=== PATIENT | male | born 1950 | race Caucasian/White ===

== ENCOUNTER 2016-05-16 22:44 | Inpatient (IN) | payer OTHER ==
[~2016-05-16] VITALS: Ht 170.2 cm; Wt 71.6 kg
--- NOTE | ~2016-05-16 | CON ---
PATIENT'S NAME: LESLIE WHITTINGTON [facility] AGE: 65 Y [address] ROOM: [place] [address] LOCATION: [facility] ADMIT DATE: 05/17/2016 Consultation DISCHARGE DATE: FAMILY PHYSICIAN: PHYSICIAN, UNKNOWN ATTENDING PHYSICIAN: Praveen Oropeza DATE OF CONSULTATION: 05/17/2016 REFERRING PHYSICIAN: Nia Carr MD CHIEF COMPLAINT: Request for medical management in the setting of chain saw injury to the left arm. HISTORY OF PRESENTING ILLNESS: This 65-year-old white male, previously healthy, was admitted to [facility] this morning after repair of a laceration/avulsion injury to the left arm, which occurred yesterday. Briefly, the patient is from [place] and had been visiting the [employer] near [place]. He was helping to support a telephone pole, which was being cut at chest level by another individual when the chain saw slipped striking him in the left arm. He fell to the ground and had pain immediately. There was significant amount of bleeding, but a tourniquet was fashioned on the scene. He was taken to the [facility] and subsequently brought here by air ambulance. He was taken directly to the operating room, where primary repair was carried out by Dr. Oropeza. On his arrival to the floor, he reports feeling "okay." He expresses some emotional distress over the incident, but his pain is well-controlled. He denies headache pain. He denies dizziness or lightheadedness. No chest pain or significant shortness of breath. No abdominal pain. His appetite has been good although he has not eaten since yesterday. No difficulties with chewing or swallowing. He stools normally and voids normally. He denies numbness, tingling, or weakness in his extremities or any associated physical or constitutional complaints. ALLERGIES: NO KNOWN DRUG ALLERGIES. ILLNESSES: 1. BPH, status post TURP. 2. Osteoarthritis, generalized. CURRENT MEDICATIONS: Multivitamin daily. PATIENT'S NAME: LESLIE WHITTINGTON [facility] AGE: 65 Y [address] ROOM: [place] [address] LOCATION: [facility] ADMIT DATE: 05/17/2016 Consultation DISCHARGE DATE: FAMILY PHYSICIAN: PHYSICIAN, UNKNOWN ATTENDING PHYSICIAN: Praveen Oropeza FAMILY HISTORY: Significant for multiple myeloma in his brother. Mother has dementia and hysteria. She lives in a senior living in [place]. SOCIAL HISTORY: He is and lives here in [place]. He is a lifelong nonsmoker and rarely drinks alcohol. REVIEW OF SYSTEMS: As per HPI. All other organ systems are reviewed and are negative. OBJECTIVE: VITAL SIGNS: Temperature 97.5, pulse 84, respirations 24, and blood pressure 171/81. GENERAL: He is anxious, but cooperative, lying in the bed, in no acute distress. SKIN: Supple, pink, warm, and dry. There are no obvious rashes. He has got a large bulky dressing over the left arm and a wound VAC in place. HEENT: Otherwise, normocephalic. Sclerae nonicteric. Pupils equal, round, and reactive to light and accommodation. Extraocular movements appear intact. Nasal turbinates normal in appearance. Oropharynx clear. Mucous members pink and moist. NECK: Supple. No masses. No thyromegaly. No JVD. CHEST: Chest wall is symmetrical. HEART: Regular without murmurs. LUNGS: Clear bilaterally. No wheezes or crackles are heard. ABDOMEN: Soft, nontender. Bowel sounds present. No masses or hepatosplenomegaly. AND RECTAL: Exam not done. EXTREMITIES: Display no significant clubbing, cyanosis, or edema. NEUROLOGICAL: No focal deficits. I am unable to assess the left arm, but there is an apparent sensory and motor deficit at the left ulnar nerve. LABORATORY AND X-RAY DATA: None available. ASSESSMENT AND PLAN: 1. Hypertension, essential, I suspect this is probably situational. He has no documented history of hypertension. We will monitor and provide supportive cares. Work toward pain control and mobilize him as he is physically able. If the trend remains high, we will consider initiating antihypertensive regimen. 2. Benign prostatic hypertrophy, status post transurethral resection of the prostate. Clinically, stable and relatively asymptomatic now. 3. Osteoarthritis, generalized. Symptomatic treatment, but avoid PATIENT'S NAME: LESLIE WHITTINGTON [facility] AGE: 65 Y [address] ROOM: [address] [address] LOCATION: [facility] ADMIT DATE: 05/17/2016 Consultation DISCHARGE DATE: FAMILY PHYSICIAN: PHYSICIAN, UNKNOWN ATTENDING PHYSICIAN: Praveen Oropeza nonsteroidal antiinflammatory drugs. 4. Chain saw injury with laceration/avulsion to the left arm and associated ulnar injury, status post primary repair. Continue with local wound care and the wound VAC. We will monitor through the weekend. Plan to repeat a CBC tomorrow. The plan as of now is to change the wound VAC and reinspect the wound on Friday at which point he may likely go home. 5. Deep venous thrombosis prophylaxis. We will utilize pneumatic compression devices and mobilize him as he is physically able. NIA J MD DANNIELLE CARR/rosey /[id number] d: 05/17/16734 t: 05/17/16803, CONSULTATION REPORT
--- NOTE | ~2016-05-16 | DS ---
PATIENT'S NAME: LESLIE WHITTINGTON [facility] AGE: 65 Y [address] ROOM: [place] [address] LOCATION: [facility] ADMIT DATE: 05/17/2016 Discharge Summary DISCHARGE DATE: 05/20/2016 FAMILY PHYSICIAN: Physician, Unknown ATTENDING PHYSICIAN: Gregory Oropeza HOSPITAL COURSE: Mr. Whittington has chainsaw injury to his left arm, complicated wound of the arm with significant muscle damage of the flexor muscles at the base. Complete laceration of the ulnar nerve. The wound was debrided. Ulnar nerve was transposed, trimmed healthy edges, Fascicles were aligned and an epineural repair. At 60 degrees of flexion and slight volar flexion of the wrist, there was absolutely no tension on the ulnar nerve. Fascia was closed. Wound was placed over the large open wound. Minimal pain. He was able to fully move fingers. Ulnar nerve deficit as expected. Cover with antibiotics. Ready for discharge to home on the . Wound is intact. No necrosis. We will continue with a wound VAC change every Friday, Friday, and Friday. Expect not need a skin graft. Tylenol or [place] for pain. Work on range of motion of fingers. Wear the brace. Instructed not to fully extend the elbow to protect the nerve repair. Schedule to follow up with Dr. Oropeza on 06/03/2016 at 9:00 a.m. GREGORY OROPEZA MD DPM/rosey /[id number] d: 05/20/16924 t: 05/21/161809, DISCHARGE SUMMARY
--- NOTE | ~2016-05-16 | HP ---
PATIENT'S NAME: LESLIE WHITTINGTON [facility] AGE: 65 Y [address] ROOM: [place] [address] LOCATION: [facility] ADMIT DATE: 05/17/2016 History & Physical DISCHARGE DATE: FAMILY PHYSICIAN: PHYSICIAN, UNKNOWN ATTENDING PHYSICIAN: Praveen Oropeza DATE OF SERVICE: 05/16/2016 EMERGENCY ROOM EVALUATION TIME: 11:00 p.m. HISTORY OF PRESENT ILLNESS: Mr. Whittington is a 65-year-old left-handed white male. 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 He was cutting down a telephone pole, cut his left arm with a chainsaw. He was evaluated at the [facility]. Tetanus was updated. The wound was explored in the emergency room under Arianne block and tourniquet. Reported to have laceration of the flexor carpi ulnaris. No other injuries found. PAST MEDICAL HISTORY: He is healthy. Does not smoke. Drinks alcohol but none today. No drug abuse. ALLERGIES: NONE. MEDICATIONS: None. REVIEW OF SYSTEMS: As above. PERSONAL AND SOCIAL HISTORY: He is a director account management. Lives and works in [place]. PHYSICAL EXAMINATION: GENERAL: A white male, no distress. HEENT: Hears and sees. NECK: Nontender. HEART: Pulse rate is regular. LUNGS: Able to take in a deep breath. ABDOMEN: Soft, nontender. EXTREMITIES: Left arm is wrapped in a bulky dressing with some bleeding PATIENT'S NAME: LESLIE WHITTINGTON [facility] AGE: 65 Y [address] ROOM: [place] [address] LOCATION: [facility] ADMIT DATE: 05/17/2016 History & Physical DISCHARGE DATE: FAMILY PHYSICIAN: PHYSICIAN, UNKNOWN ATTENDING PHYSICIAN: Praveen Oropeza through. The left hand has good capillary refill. The ulnar nerve distribution is numb. Intrinsics are weak. Thenar muscles and extensors have full strength. ASSESSMENT AND PLAN: A chainsaw injury to the left arm. He has received tetanus, to the operating room to explore. Reported to have tendon lacerations, which were repaired. On examination, he appears to have an ulnar nerve deficit, likely to have an injury to the ulnar nerve, that may require repair. Risks, benefits, and alternatives have all been discussed in detail. PRAVEEN OROPEZA MD DPM/rosey /[id number] D: [id number] T: [id number] HISTORY & PHYSICAL
--- NOTE | ~2016-05-16 | ER ---
PATIENT'S NAME: LESLIE WHITTINGTON [facility] AGE: 65 Y [address] ROOM: [place] [address] LOCATION: [facility] ADMIT DATE: 05/17/2016 ER/Outpatient Report DISCHARGE DATE: FAMILY PHYSICIAN: PHYSICIAN, UNKNOWN ATTENDING PHYSICIAN: Armando Oropeza Admission date and time documented in the medical record. I saw the patient at 2250 hours. CHIEF COMPLAINT: Chainsaw laceration, left forearm. 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 He and another individual were trying to cut down a telephone pole with a chainsaw. The patient was trying to hold the pole back, so would not snap on him, and apparently, the chainsaw run by the other individual, jumped, cut him in the left forearm. Deep major laceration. The patient was initially seen in [place] and transferred by air ambulance to [facility] for further evaluation and treatment. I did speak with the physician at [place] and did have him also talk with Dr. Oropeza, orthopedic surgeon. The patient's vital signs remained stable through the flight. He was soaking through his bandages just prior to landing. He did get a tetanus update, did get fluids, did get pain medications. Did not receive any antibiotics. No recent colds, coughs, flus, fever, chills, or sweats. No headache, eyes, ears, nose, throat, neck, or spine pain. No chest pain, shortness of breath. No abdominal pain, nausea, vomiting, diarrhea, urinary frequency, urgency, or dysuria. No other joint or muscle swelling, redness, or pain other than the left forearm. No skin eruptions or rash. No history of endocrine problems, neuro changes, or psych issues. HOME MEDICATIONS: None. ALLERGIES: NONE. SOCIAL HISTORY: Nonsmoker. Occasional intake of alcohol. SIGNIFICANT PAST MEDICAL HISTORY: Negative. OPERATIONS: None. PATIENT'S NAME: LESLIE WHITTINGTON [facility] AGE: 65 Y [address] ROOM: [place] [address] LOCATION: [facility] ADMIT DATE: 05/17/2016 ER/Outpatient Report DISCHARGE DATE: FAMILY PHYSICIAN: PHYSICIAN, UNKNOWN ATTENDING PHYSICIAN: Armando Oropeza REVIEW OF SYSTEMS: All systems reviewed by me are negative with the exception of those discussed in the history of present illness. PHYSICAL EXAMINATION: VITAL SIGNS: Reviewed by me. They are on the nurse's document. HEAD: Normocephalic. No abrasion, contusion, laceration, swelling of the scalp or face. EYES: Extraocular muscles intact. PERRL. EARS: Clear TMs bilaterally. NOSE: Clear. THROAT: Clear. Mucous membranes moist. Teeth and jaw intact. NECK: No nuchal rigidity. No thyromegaly or cervical adenopathy. SPINE: Negative. LUNGS: Clear. Good air flow. No rales, rhonchi, or wheezes. HEART: Regular. Pulses are palpable. No chest wall or ribcage pain to palpation. ABDOMEN: Flat, soft, nondistended, nontender. Good bowel tones. No organomegaly or abnormal mass palpable. EXTREMITIES: No peripheral edema, cyanosis, or deformity. The patient has good capillary refill of his left hand. He has some numbness on ulnar aspect of the hand. I did not address the wound at this time. We will wait to have Dr. Oropeza, orthopedic surgeon, and wrap the hand and look at the wound. Dr. Oropeza may do this back in surgery. NEUROVASCULAR: Intact other than he may have some ulnar damage to the left arm. SKIN: Clear other than the left forearm injury. EMERGENCY DEPARTMENT COURSE: Did continue the patient on IV normal saline and fluids. Did give him antibiotics here. The patient will be taken back to surgery, operation to cleanse, debride the wound per Dr. Praveen Oropeza, orthopedic surgeon. IMPRESSION: Extensive chainsaw laceration, left forearm with possible ulnar nerve damage. PLAN: The patient will continue to receive IV fluids, IV pain medications, IV antibiotics here in the emergency department. Awaiting for the patient to be taken back to surgery for irrigation and debridement and possible closure of the left forearm laceration per Dr. Praveen Oropeza. PATIENT'S NAME: LESLIE WHITTINGTON [facility] AGE: 65 Y [address] ROOM: [place] [address] LOCATION: [facility] ADMIT DATE: 05/17/2016 ER/Outpatient Report DISCHARGE DATE: FAMILY PHYSICIAN: PHYSICIANVENKATESH ATTENDING PHYSICIAN: Armando Oropeza MD CLAYTON GRANADOS/modl /[id number] d: 05/17/16 0120 t: 05/17/16 1825, OUTPATIENT REPORT
--- NOTE | ~2016-05-16 | OR ---
PATIENT'S NAME: LESLIE WHITTINGTON [facility] AGE: 65 Y [address] ROOM: [address] [address] LOCATION: [facility] ADMIT DATE: 05/17/2016 OR/Procedure Report DISCHARGE DATE: FAMILY PHYSICIAN: PHYSICIAN, UNKNOWN ATTENDING PHYSICIAN: Praveen Oropeza SURGEON: Praveen Oropeza MD SENIOR SOFTWARE ENGINEERING MANAGER: DATE OF PROCEDURE: 05/17/2016 DIAGNOSES: 1. Chainsaw injury to the left forearm. 2. Ulnar nerve deficit of motor and sensory function on preoperative examination. 3. Open wound disrupting the origin of the left arm flexor muscles. PROCEDURES PERFORMED: 1. Irrigation and debridement of chainsaw injury to the left forearm. 2. Exploration and neurolysis of ulnar nerve. 3. Submuscular transposition of the left ulnar nerve. 4. Microscopic repair of the ulnar nerve matching up fascicles. 5. Repair of volar flexor muscle fascia. 6. Application of a wound VAC. 7. Splinting left upper extremity with the elbow flexed 60 degrees and 15 degrees volar flexion in neutral rotation. ANESTHESIA: General. INDICATION: Mr. Whittington is almost 8 hours status post open chainsaw injury to the left upper extremity. On examination preop, has absence of ulnar nerve sensation and also weakness of the intrinsic muscles consistent with an ulnar nerve laceration. To the operating room for irrigation and debridement of the open chainsaw wound, probable primary repair of the ulnar nerve. May require special positioning and possibly even ulnar nerve transposition. Repair of tendons and fascia is required. May require a wound VAC followed by skin grafting. Risks, benefits, and alternatives have all been discussed. Understands with an ulnar nerve repair, even with a primary repair, will be kaley to have return of protective sensation and likely end up for a significant return of motor function of the intrinsics, likely then end up with some clawing of the fingers on the ulnar side of the hand, hopefully will prevent a painful neuroma. Risks benefits, and alternatives were all carefully discussed. Appeared on examination to have good capillary refill and a palpable radial pulse. DESCRIPTION OF PROCEDURE: Mr. Whittington was taken to the operating room, 2 grams of Kefzol was given intravenously for prophylaxis. His tetanus had been PATIENT'S NAME: LESLIE WHITTINGTON [facility] AGE: 65 Y [address] ROOM: [id number] [place], [place] [address] LOCATION: [facility] ADMIT DATE: 05/17/2016 OR/Procedure Report DISCHARGE DATE: FAMILY PHYSICIAN: PHYSICIAN, UNKNOWN ATTENDING PHYSICIAN: Praveen Oropeza updated back in the [facility]. General anesthetic was administered via endotracheal tube. Tourniquet high about the left arm, in fact when the dressing was removed, there was so much bleeding that the tourniquet was immediately inflated. The arm was prepped with Betadine scrubbing followed by Betadine painting and draped sterilely. The wound in the volar aspect of the proximal forearm spanned approximately 10 cm x 10 cm. The distal ulnar nerve was found. It was completely divided and shredded. Proximal end was also shredded. Cut back to good healthy tissue. There was a vein which allowed the fascicles to be matched up. There was tension too great to allow primary repair. The ulnar nerve was explored proximally, and ulnar nerve submuscular transposition was performed. This allowed a tension-free repair of the nerve using 6-0 nylon and loupe magnification. The nerve was repaired in epineurium with the fascicles matched up. The wound was washed, and carefully and meticulously debrided and irrigated with 3 L with the pulse lavage prior to the repair. The tourniquet had been deflated after 1 hour, and meticulous attention to hemostasis. The flexor muscles with the flexor carpi ulnaris, flexor carpi radialis, their bases were completely chewed up with the volar fascia disrupted. Deep muscles were largely intact. With the elbow flexed 60 degrees and with approximately 10 to 15 degrees of volar flexion of the wrist, there was absolutely no tension on the ulnar nerve repair. Closing the fascia over the flexor muscles covered the repair with viable flexor muscles. The tendon was repaired over the submuscular transposition with 0 Vicryl. Proximal incision was closed with 2-0 nylon simple sutures. The remaining wound in the subcutaneous tissue to the fascia, it bands approximately 3 cm x 10 cm. A wound VAC was placed over the open wound. A well-padded splint with 60 degrees of elbow flexion and 15 degrees of wrist volar flexion was applied. Procedure was done without complication. Estimated blood loss from the procedure was minimal. Tourniquet time was 60 minutes. To the recovery room in stable condition. PRAVEEN OROPEZA MD DPM/rosey /[id number] d: 05/17/16 0522 t: 05/21/16 1805, OPERATIVE SUMMARY
[2016-05-16] MEDS ORDERED: THERA-VITE W/ B1 TAB PO (23:54)
[2016-05-18 04:36] LABS: BASOPHIL % 0.3 %; EOSINOPHIL # 0.1 K/uL (0.0-0.5); EOSINOPHIL % 1.4 %; HEMATOCRIT 36.9 % (37.0-53.0); HEMOGLOBIN 12.3 g/dL (11.0-16.0); IMMATURE GRANULOCYTE % 0.4 %; LYMPHOCYTE # 1.9 K/uL (0.8-4.0); LYMPHOCYTE % 20.2 %; MCH 30.8 pg (27.0-34.0); MCHC 33.3 gm/dL (32.0-36.5); MCV 92.3 fl (83.0-98.0); MONOCYTE # 0.6 K/uL (0.0-1.0); MONOCYTE % 6.5 %; MPV 9.6 fl (9.4-12.4); NEUTROPHIL # (ANC) 6.6 K/uL (1.4-9.0); NEUTROPHIL % 71.2 %; NRBC % 0 /100WBC (0-0.00); PLATELET COUNT 138 K/uL (150-450); RDW-CV 13.4 % (11.9-14.6); WBC 9.3 K/uL (4.0-11.0)
[2016-05-18 04:53] LABS: ANION GAP 11.9 (10.0-19.0); BLOOD UREA NITROGEN 13 mg/dL (6-24); CALCIUM 8.3 mg/dL (8.5-10.5); CHLORIDE 108 mMol/L (96-110); CO2 27 mMol/L (22-32); CREATININE 1.2 mg/dL (0.6-1.3); ESTIMATED GFR (MDRD EQUATION) > 60; POTASSIUM 3.9 mMol/L (3.7-5.1); SODIUM 143 mMol/L (135-145)
[2016-05-20] MEDS ORDERED: TYLENOL325 MG PO (08:57)
[2016-05-20] MEDS ORDERED: NORCO 5-325 TA1 EACH PO (09:04)
== END 2016-05-20 13:28 | disposition disaster alternative care site (69) | DRG 41 ==
LOC: GACC 22:44 → GNTU 05-17 00:15
PROVIDERS: Family Medicine; ADMIT Orthopaedic Surgery
PROC: 3E10X8Z Irrigation of Skin and Mucous Membranes using Irrigating Substance (ICD-10-PCS; principal; 2016-05-17)
PROC: 0JBH0ZZ Excision of Left Lower Arm Subcutaneous Tissue and Fascia, Open Approach (ICD-10-PCS; principal; 2016-05-17)
PROC: 01U407Z Supplement Ulnar Nerve with Autologous Tissue Substitute, Open Approach (ICD-10-PCS; principal; 2016-05-17)
PROC: 01X40Z4 Transfer Ulnar Nerve to Ulnar Nerve, Open Approach (ICD-10-PCS; principal; 2016-05-17)
PROC: 01N40ZZ Release Ulnar Nerve, Open Approach (ICD-10-PCS; principal; 2016-05-17)
PROC: 0KQB0ZZ Repair Left Lower Arm and Wrist Muscle, Open Approach (ICD-10-PCS; principal; 2016-05-17)
PROC: 0LQ60ZZ Repair Left Lower Arm and Wrist Tendon, Open Approach (ICD-10-PCS; principal; 2016-05-17)
DX: S54.02XA Injury of ulnar nerve at forearm level, left arm, initial encounter (principal); S56.222A Laceration of other flexor muscle, fascia and tendon at forearm level, left arm, initial encounter; S51.812A Laceration without foreign body of left forearm, initial encounter; W29.3XXA Contact with powered garden and outdoor hand tools and machinery, initial encounter; M15.9 Polyosteoarthritis, unspecified; R03.0 Elevated blood-pressure reading, without diagnosis of hypertension
CPT/HCPCS: J0690; J1100; J1170; J3010; J7030

== ENCOUNTER → 2016-05-16 | Outpatient (CLI) | payer OTHER ==
[~2016-05-16] MED LIST: NORCO 5-325 TA1 EACH PO; THERA-VITE W/ B1 TAB PO; TYLENOL325 MG PO
== END | disposition disaster alternative care site (69) ==
LOC: GAIR 21:48
DX: T79.4XXA Traumatic shock, initial encounter (principal); S41.112A Laceration without foreign body of left upper arm, initial encounter; M79.602 Pain in left arm; W22.8XXA Striking against or struck by other objects, initial encounter
CPT/HCPCS: A0422; A0431; A0436; J3010